=== PATIENT | female | born 1960 | race Caucasian/White ===

== ENCOUNTER 2018-04-21 18:57 | Emergency (ER) | payer OTHER ==
[~2018-04-21] VITALS: Ht 157.5 cm; Wt 63.5 kg
[2018-04-21] MEDS ORDERED: GABAPENTIN600 MG PO (19:54)
[2018-04-21] MEDS ORDERED: COZAAR50 MG PO (19:54)
[2018-04-21] MEDS ORDERED: ATORVASTATIN CA10 MG PO (19:54)
[2018-04-21] MEDS ORDERED: AMLODIPINE BES2.5 MG PO (19:55)
[2018-04-21] MEDS ORDERED: MEDROLPACK PO (22:15)
== END 2018-04-21 22:57 | disposition home or self-care (01) ==
LOC: ER 18:57
DX: G51.0 Bell's palsy (principal)